=== PATIENT | female | born 1990 | race American Indian/Alaskan Native ===

== ENCOUNTER 2018-12-17 12:55 | Emergency (ER) | payer OTHER, MEDICAID ==
[2018-12-17] MEDS ORDERED: IBUPROFEN PO ONE (13:32)
[2018-12-17] MEDS ORDERED: TYLENOL PO ONE (13:32)
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
[2018-12-17 14:14] LABS: Bacteria,Urine 1+ /HPF (Negative); Bilirubin,Urine NEG (Negative); Blood,Urine NEG (Negative); Color,Urine Straw (Yellow); Protein,Urine <15 mg/dL mg/dL (Negative); Urobilinogen,Urine < 2.0 mg/dL (<2.0); WBC,Urine < 1.0 /HPF (0.0-6.0)
[2018-12-17 14:42] LABS: HCG Qualitative,Urine Negative (Negative)
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
[2018-12-17 17:36] VITALS: BP 118/76
== END 2018-12-17 17:34 | disposition home or self-care (01) ==
LOC: ED 12:55
DX: M79.651 Pain in right thigh (principal); V49.49XA Driver injured in collision with other motor vehicles in traffic accident, initial encounter; Y93.89 Activity, other specified; Y92.410 Unspecified street and highway as the place of occurrence of the external cause; Y99.8 Other external cause status
CPT/HCPCS: 72170; 81001; 81025